=== PATIENT | female | born 1990 | race African-American/Black ===

== ENCOUNTER 2023-08-17 15:01 | Emergency (ER) | payer OTHER ==
[~2023-08-17] VITALS: Ht 162.6 cm; Wt 81.6 kg
[2023-08-17 15:04] VITALS: BP_SYST 152; PULSE 89; RESP 18; TEMP 98.2; O2SAT 100
[2023-08-17 16:08] LABS: BASOPHILS % (AUTO) 0.5 % (0.0-2.0); EOSINOPHILS % (AUTO) 0.3 % (0.0-4.0); HEMATOCRIT 38.4 % (36-48); HEMOGLOBIN 12.4 g/dL (12.0-16.0); LYMPHOCYTES # (AUTO) 1.6 K/uL (1.0-5.5); LYMPHOCYTES % (AUTO) 23.7 % (20.5-51.5); MEAN CORPUSCULAR HEMOGLOBIN 28 pg (27-31); MEAN CORPUSCULAR HGB CONC 32 % (32-36); MEAN CORPUSCULAR VOLUME 85 fL (79.0-98.0); MONOCYTES # (AUTO) 0.6 K/uL (0.0-1.0); MONOCYTES % (AUTO) 8.8 % (1.7-9.3); NEUTROPHILS # (AUTO) 4.4 K/uL (1.8-7.7); NEUTROPHILS % (AUTO) 66.7 % (40.0-70.0); PLATELET COUNT (AUTO) 346 K/uL (130-430); RED CELL DISTRIBUTION WIDTH 13.3 % (9.0-15.0); WHITE BLOOD COUNT (AUTO) 6.6 K/uL (4.8-10.8)
[2023-08-17 16:24] LABS: ALANINE AMINOTRANSFERASE 32 U/L (12-78); ANION GAP 10 (5-15); ASPARTATE AMINOTRANSFERASE 32 U/L (10-37); CALCIUM 9.2 mg/dL (8.4-11.0); CARBON DIOXIDE 24 mmol/L (23-29); CHLORIDE 100 mmol/L (98-107); CREATININE 1.05 mg/dL (0.55-1.30); GFR AFRICAN AMERICAN 79 mL/min (>90); GLUCOSE 90 mg/dL (74-106); POTASSIUM 3.6 mmol/L (3.5-5.1); SODIUM SERUM 134 mmol/L (136-145); TOTAL BILIRUBIN 0.7 mg/dL (0.0-1.0); TOTAL PROTEIN, SERUM 7.8 g/dL (6.4-8.3); UREA NITROGEN, BLOOD 11 mg/dL (8-21)
[2023-08-17 16:26] LABS: GFR NON AFRICAN-AMERICAN 65 mL/min (>90)
[2023-08-17 16:27] LABS: BILIRUBIN,DIRECT 0.2 mg/dL (0.0-0.3); LIPASE 23 U/L (16-77)
[2023-08-17 21:49] VITALS: BP_SYST 143; PULSE 80; RESP 19; TEMP 97.6; O2SAT 99
== END 2023-08-17 21:28 | disposition home or self-care (01) ==
LOC: SED 15:01
DX: R55 Syncope and collapse (principal); R10.33 Periumbilical pain; Z88.5 Allergy status to narcotic agent; Z90.49 Acquired absence of other specified parts of digestive tract
CPT/HCPCS: 99285; 70450; 76856; 71045; 80076; 80048; 83690; 85025; 84484; 36415; 93005; 76376; 74178; 81025; Q9967